=== PATIENT | female | born 1975 ===

== ENCOUNTER 2019-01-06 19:10 | Emergency (ER) | payer OTHER ==
[~2019-01-06] VITALS: Ht 165.1 cm; Wt 65.8 kg
[2019-01-07] MEDS ORDERED: CIPRO500 MG PO (00:09)
== END 2019-01-07 00:19 | disposition home or self-care (01) ==
LOC: ER 19:10
DX: S01.121A Laceration with foreign body of right eyelid and periocular area, initial encounter (principal); W45.8XXA Other foreign body or object entering through skin, initial encounter; Y93.89 Activity, other specified; Y92.89 Other specified places as the place of occurrence of the external cause; Y99.8 Other external cause status

== ENCOUNTER 2019-01-12 14:56 | Emergency (ER) | payer OTHER ==
[~2019-01-12] VITALS: Ht 157.5 cm; Wt 73.9 kg
[~2019-01-12 14:56] MED LIST: CIPRO500 MG PO
[2019-01-12] MEDS ORDERED: CIPRO500 MG PO (16:11)
== END 2019-01-12 18:27 | disposition home or self-care (01) ==
LOC: ER 14:56
DX: Z48.02 Encounter for removal of sutures (principal)